=== PATIENT | female | born 1995 | race American Indian/Alaskan Native ===

== ENCOUNTER 2019-12-30 03:19 | Emergency (ER) | payer SELFPAY ==
[2019-12-30 04:23] LABS: Basophils # (Auto) 0.1 K/mm3 (0.0-0.1); Basophils % (Auto) 0.9 % (0.0-1.8); Eosinophils # (Auto) 0.1 K/mm3 (0.0-0.4); Eosinophils % (Auto) 1.3 % (0.0-4.3); Hematocrit 31.5 % (30.3-42.9); Hemoglobin 10.5 gm/dl (10.1-14.3); Lymphocytes # (Auto) 3.4 K/mm3 (1.2-5.4); Lymphocytes % (Auto) 37.1 % (13.4-35.0); Mean Corpuscular HGB Conc 33 % (30-34); Mean Corpuscular Volume 89 fl (79-97); Monocytes # (Auto) 0.8 K/mm3 (0.0-0.8); Monocytes % (Auto) 8.4 % (0.0-7.3); Platelet Count 405 K/mm3 (140-440); Red Blood Count 3.52 M/mm3 (3.65-5.03); Red Cell Distribution Width 13.7 % (13.2-15.2)
[2019-12-30 04:37] LABS: Alanine Aminotransferase 15 units/L (7-56); Albumin 4.1 g/dL (3.9-5); BUN/Creatinine Ratio 18; Blood Urea Nitrogen 16 mg/dL (7-17); Calcium 9.6 mg/dL (8.4-10.2); Hemolysis Index 43
--- NOTE | 2019-12-30 04:53 | XRay Report ---
CHEST 2 VIEWS INDICATION: Chest Pain. COMPARISON: None FINDINGS: Support devices: None. Heart: Within normal limits. Lungs/pleura: No acute air space or interstitial disease. No pneumothorax. Additional findings: None. IMPRESSION: 1. No acute findings. Signer Name: Nicho Pineda MD Signed: 12/30/2019 4:48 AM Workstation Name: [id number]
[2019-12-30] MEDS ORDERED: FAMOTIDINE 20 MG TAB PO ONE (05:15)
[2019-12-30] MEDS ORDERED: LIDOCAINE VISCOUS 2% 15 ML ORAL LIQD PO ONE (05:15)
[2019-12-30] MEDS ORDERED: ALUM-MAG HYDROXIDE-SIMETHICONE 200-200-20MG/5ML ORAL LIQD 30 ML PO ONE (05:15)
[2019-12-30] MEDS ORDERED: ACETAMINOPHEN 500 MG TAB PO ONE (05:15)
--- NOTE | 2019-12-30 05:18 | Emergency Department Report ---
ED General Adult HPI - General Chief complaint: Chest Pain Stated complaint: CHEST PAIN Source: patient Mode of arrival: Ambulatory Limitations: No Limitations - History of Present Illness Initial comments: Patient is a nulliparous 24-year-old -[place] female with no past medical history presents to the ED with complaint of a persistent epigastric, nausea and vomiting and diffuse chest wall pain for the last 2 months intermittently worse in the last 6 hours. Patient states that the current symptoms started about 3 hours ago and has been persistent since onset 3 hours ago. Patient states that she does not smoke or drink alcohol or use any illegal drugs. Patient also states that she is not on any control. Patient states that she ate dinner about 5 hours ago and went to sleep and woke up with mild epigastric pain and chest pain with nausea and vomiting. Patient denies dizziness, syncope, fever, chills, diarrhea, shortness of breath, cough, nasal and sinus congestion, sore throat, dysuria, urinary frequency and urgency, hematemesis, hematochezia, headache or palpitations. MD Complaint: chest pain; nausea and vomiting -: Sudden, month(s) (2) Location: chest, abdomen Radiation: non-radiation Severity scale (0 -10): 4 Quality: aching, sharp Consistency: intermittent Improves with: none Worsens with: movement Associated Symptoms: denies other symptoms, chest pain, nausea/vomiting. denies: confusion, cough, diaphoresis, fever/chills, headaches, loss of appetite, malaise, rash, seizure, shortness of breath, syncope, weakness, other Treatments Prior to Arrival: none - Related Data Previous Rx's Medication Instructions Recorded Last Taken Type Famotidine [Pepcid] 20 mg PO BID #60 tablet 12/30/19 Unknown Rx Ibuprofen [Motrin] 600 mg PO Q8H PRN #20 tablet 12/30/19 Unknown Rx Ondansetron [Zofran Odt] 4 mg PO Q6HR PRN #20 tab.rapdis 12/30/19 Unknown Rx Allergies Allergy/AdvReac Type Severity Reaction Status Date / Time No Known Allergies Allergy Unverified 12/30/19 03:33 ED Review of Systems ROS: Stated complaint: CHEST PAIN Other details as noted in HPI Comment: All other systems reviewed and negative Constitutional: denies: chills, fever Eyes: denies: eye pain, eye discharge, vision change ENT: denies: ear pain, throat pain Respiratory: denies: cough, shortness of breath, wheezing Cardiovascular: chest pain. denies: palpitations Endocrine: no symptoms reported Gastrointestinal: abdominal pain, nausea, vomiting. denies: diarrhea Genitourinary: denies: urgency, dysuria, discharge Musculoskeletal: denies: back pain, joint swelling, arthralgia Skin: denies: rash, lesions Neurological: denies: headache, weakness, paresthesias Psychiatric: denies: anxiety, depression Hematological/Lymphatic: denies: easy bleeding, easy bruising ED Past Medical Hx - Past Medical History Previous Medical History?: No - Surgical History Past Surgical History?: No - Social History Smoking Status: Never Smoker Substance Use Type: None - Medications Home Medications: Home Medications Medication Instructions Recorded Confirmed Last Taken Type Famotidine [Pepcid] 20 mg PO BID #60 tablet 12/30/19 Unknown Rx Ibuprofen [Motrin] 600 mg PO Q8H PRN #20 tablet 12/30/19 Unknown Rx Ondansetron [Zofran Odt] 4 mg PO Q6HR PRN #20 tab.rapdis 12/30/19 Unknown Rx ED Physical Exam - General Limitations: No Limitations General appearance: alert, in no apparent distress - Head Head exam: Present: atraumatic, normocephalic, normal inspection - Eye Eye exam: Present: normal appearance, PERRL, EOMI Pupils: Present: normal accommodation - ENT ENT exam: Present: normal exam, normal orophraynx, mucous membranes moist, TM's normal bilaterally, normal external ear exam - Neck Neck exam: Present: normal inspection, full ROM. Absent: tenderness, lymphadenopathy - Respiratory Respiratory exam: Present: normal lung sounds bilaterally, chest wall tenderness (Palpable reproducible diffuse chest wall tenderness). Absent: respiratory distress, wheezes, rales, rhonchi, accessory muscle use, decreased breath sounds, prolonged expiratory - Cardiovascular Cardiovascular Exam: Present: regular rate, normal rhythm, normal heart sounds. Absent: systolic murmur, diastolic murmur, rubs, gallop - GI/Abdominal GI/Abdominal exam: Present: soft, tenderness (Palpable mild epigastric tend erness), normal bowel sounds. Absent: guarding, hyperactive bowel sounds, hypoactive bowel sounds - Extremities Exam Extremities exam: Present: normal inspection, full ROM, normal capillary refill - Back Exam Back exam: Present: normal inspection, full ROM. Absent: tenderness, CVA tenderness (R), muscle spasm, paraspinal tenderness - Neurological Exam Neurological exam: Present: alert, oriented X3, CN II-XII intact, normal gait, reflexes normal - Psychiatric Psychiatric exam: Present: normal affect, normal mood - Skin Skin exam: Present: warm, dry, intact, normal color. Absent: rash ED Course Vital Signs 12/30/19 12/30/19 03:46 05:28 Temperature 97.5 F L Pulse Rate 85 Respiratory 18 18 Rate Blood Pressure 140/73 O2 Sat by Pulse 100 Oximetry ED Medical Decision Making - Lab Data Result diagrams: 12/30/19 03:56 12/30/19 03:56 - Radiology Data Radiology results: report reviewed, image reviewed Findings [address] [address] XRay Report Signed Patient: LILIANA KRAUS MR#: [id number] : 1995 Acct:[id number] Age/Sex: 24 / F ADM Date: 12/30/19 Loc: ED Attending Dr: Ordering Physician: ED MD SALVADOR Date of Service: 12/30/19 Procedure(s): XR chest routine 2V Accession Number(s): [id number] cc: ED MD SALVADOR Fluoro Time In Minutes: CHEST 2 VIEWS INDICATION: Chest Pain. COMPARISON: None FINDINGS: Support devices: None. Heart: Within normal limits. Lungs/pleura: No acute air space or interstitial disease. No pneumothorax. Additional findings: None. IMPRESSION: 1. No acute findings. Signer Name: Nicho Pineda MD Signed: 12/30/2019 4:48 AM Workstation Name: [id number] Transcribed By: KARLOS Dictated By: Nicho Pineda MD Electronically Authenticated By: Nicho Pineda MD Signed Date/Time: 12/30/19447 DD/ 7 TD/TT: - Medical Decision Making This is a nulliparous 24-year-old -[place] female with no past medical history presents to the ED with complaint of a persistent epigastric, nausea and vomiting and diffuse chest wall pain for the last 2 months intermittently worse in the last 6 hours. Patient states that the current symptoms started about 3 hours ago and has been persistent since onset 3 hours ago. Patient states that she does not smoke or drink alcohol or use any illegal drugs. Patient also states that she is not on any control. Patient states that she ate dinner about 5 hours ago and went to sleep and woke up with mild epigastric pain and chest pain with nausea and vomiting. In the ED, patient is alert and oriented x3 and is not in distress. Lab test results were reviewed and are all nonactionable and chest x-ray shows no acute cardiopulmonary abnormalities and pneumonitis. On physical exam, patient exhibits reproducible diffuse chest wall tenderness to palpation. Patient symptoms are likely due to acute costochondritis, chest wall muscle strain and GERD complications given the patient's weight and obesity, and the time of night that she eats her dinner. Patient stated earlier that she ate her dinner later in the night and went to sleep and subsequently developed epigastric pain and chest wall pain. Patient was treated in the ED with antacids and pain medications as well as antiemetics. On reevaluation, patient's symptoms resolved, patient has not had any nausea or vomiting in the ED despite oral medications being given to the patient. Patient was discharged home on pain medications, antiemetics and antacids and was advised to follow-up with her primary care physician in 5 to 7 days for reevaluation. Patient was advised to return to the ED immediately if symptoms get worse. - Differential Diagnosis Pneumonia; GERD; Muscle strain; costochondritis Critical care attestation.: If time is entered above; I have spent that time in minutes in the direct care of this critically ill patient, excluding procedure time. ED Disposition Clinical Impression: Acute costochondritis, GERD without esophagitis, Nausea and vomiting in adult Disposition: DC-01 TO HOME OR SELFCARE Is pt being admited?: No Does the pt Need Aspirin: No Condition: Stable Instructions: Gastroesophageal Reflux Disease (ED), Acute Nausea and Vomiting (ED), Costochondritis (ED) Additional Instructions: All the lab test results are unremarkable, and chest x-ray shows no acute cardiopulmonary abnormalities or pneumonitis. Your symptoms are likely due to GERD complications and chest wall pain. Therefore medications with food, drink plenty of fluids and follow-up with your primary care physician in 3 to 5 days for reevaluation or return to the ED immediately if symptoms get worse. Prescriptions: Ibuprofen [Motrin] 600 mg PO Q8H PRN #20 tablet PRN Reason: Pain Famotidine [Pepcid] 20 mg PO BID #60 tablet Ondansetron [Zofran Odt] 4 mg PO Q6HR PRN #20 tab.rapdis PRN Reason: Nausea Referrals: [facility] [Provider Group] - 3-5 Days Time of Disposition: 06:05 Print Language: WOLOF
[2020-01-01 12:24] VITALS: BP 138/69
== END 2019-12-30 06:45 | disposition home or self-care (01) ==
LOC: ED 03:19
DX: M94.0 Chondrocostal junction syndrome [Tietze] (principal); R11.2 Nausea with vomiting, unspecified; K21.9 Gastro-esophageal reflux disease without esophagitis; Z79.1 Long term (current) use of non-steroidal anti-inflammatories (NSAID); Z79.899 Other long term (current) drug therapy
CPT/HCPCS: 36415; 71046; 80053; 84703; 85025; 93005